=== PATIENT | female | born 1960 | race Caucasian/White ===

== ENCOUNTER 2016-06-23 09:52 | Day surgery (SDC) | payer BC ==
[2016-06-16 07:41] LABS: HEMATOCRIT 39.6 % (36.0-48.0); HEMOGLOBIN 13.8 g/dL (12.0-16.0)
--- NOTE | ~2016-06-23 | OP ---
Record Of Operation [facility] [address] [place]. [address] NAME: VICKY CROSS : 58 STATUS : REG [facility] [place] PAT#: [id number] AGE: 55 ADM/REG DATE : 06/23/16 MR#: [id number] REPORT SERV DATE: 06/23/16 DICTATED BY: MARIA ELENA BAUTISTA DATE: 06/23/16 REPORT STATUS : Draft TRANSCRIBED BY: MODL DATE: 06/23/16 DATE OF PROCEDURE: 06/23/2016 PREOPERATIVE DIAGNOSES: 1. 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 2. 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 POSTOPERATIVE DIAGNOSES: 1. 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 2. 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 PROCEDURES: 1. Right 5th PIPJ arthroplasty with de-rotational skin plasty. 2. Right 5th DIPJ arthroplasty with K-wire stabilization. SURGEON: Carlotta RainPXavier ANESTHESIA: General local anesthetic. ESTIMATED BLOOD LOSS: Minimal. COMPLICATIONS: None. INJECTABLES: Approximately 10 mL of a 1:1 mixture of 1% Xylocaine plain and 0.5% Marcaine plain. MATERIALS: Include 0.045 K-wire, 4-0 Vicryl, 5-0 nylon. PROCEDURE IN DETAIL: Under mild sedation, the patient was brought to the operating room and placed on the operating table in supine position. Following general anesthesia, local anesthesia obtained about the patient's right foot. Right foot, ankle, and lower leg were scrubbed, prepped, and draped in usual aseptic manner. Attention was directed to the procedure. Procedure #1 is right 5th PIPJ arthroplasty with de-rotational skin plasty and K-wire stabilization. Attention was directed to the dorsal aspect of the patient's right 5th PIPJ where an oblique semi-elliptical incision was made overlying the dorsal aspect of the PIPJ. This oblique incision continued to subcutaneous tissue. An ellipse of skin was removed in toto with care being taken to identify and retract all vital neurovascular structures. At this time, a transverse tenotomy and capsulotomy ensued to the right 5th PIPJ. The head of the proximal phalanx was exposed and utilizing a sagittal bone saw, the head of the proximal phalanx was resected. All rough edges smoothed as necessary. At this time, attention was directed to the next procedure. Next procedure is right 5th DIPJ arthroplasty with K-wire stabilization. Attention now was directed to the dorsal aspect of this right 5th DIPJ where two 1 cm transverse incisions Record Of Operation [facility] [address] [place]. [address] NAME: VICKY CROSS : 58 STATUS : REG [facility] [place] PAT#: [id number] AGE: 55 ADM/REG DATE : 06/23/16 MR#: [id number] REPORT SERV DATE: 06/23/16 DICTATED BY: MARIA ELENA BAUTISTA DATE: 06/23/16 REPORT STATUS : Draft TRANSCRIBED BY: MODL DATE: 06/23/16 were made in a semi-elliptical fashion encompassing the dorsal aspect of the right 5th DIPJ. Ellipse of skin was removed in toto. Transverse tenotomy and capsulotomy ensued, and partial resection of the head in the intermediate phalanx was performed. At this time, a K- wire was then placed through the intermediate phalanx exiting through the distal phalanx percutaneously and was retrograded into the proximal phalanx in a de-rotated position. At this time, the extensor tendons reapproximated and coapted utilizing 4-0 Vicryl, skin was reapproximated and coapted utilizing 5-0 nylon in an interrupted horizontal suture technique. A well-padded sterile dressing was placed about the patient's right foot and ankle. Prior to covering the 5th toe, the tourniquet was released and capillary refill time was immediate to all digits. A K-cap was placed over the tip of the K-wire. Again, capillary refill time less was than 3 seconds, all digits tested. The toe was then completely covered in a well-padded sterile dressing and well-padded CAM walker was placed about the patient's right foot and ankle. The patient tolerated the procedure and anesthesia well and was transferred to recovery room with vital signs stable and vascular status intact to all toes. Following a period of postoperative monitoring, the patient will be discharged home with following written and oral postoperative instructions. 1. Keep dressings clean, dry, and intact. 2. Partial weightbearing with crutches and CAM walker, ice and elevate as directed, and will follow up with Dr. Bautista in 7 to 14 days. SUNDARW/MODL Kevin Bautista D.P.M. / [id number] CC: Kalpesh Rain Joel S
[~2016-06-23 09:52] MED LIST: CALTRAT600 PO; ESTRACE0.5 MG PO; PRILOSEC40 MG PO; PRIN10 PO; T PO; V5 PO; VIVELLE SY0.05 MG/24 TOP; X5 PO; ZOL50 PO
== END 2016-06-23 23:59 | disposition home or self-care (01) ==
LOC: MSC 09:52
PROVIDERS: Podiatrist Foot & Ankle Surgery
PROC: 0SRP0JZ Replacement of Right Toe Phalangeal Joint with Synthetic Substitute, Open Approach (ICD-10-PCS; principal; 2016-06-23 11:45)
DX: M20.41 Other hammer toe(s) (acquired), right foot (principal); S92.5 Fracture of lesser toe(s); G47.33 Obstructive sleep apnea (adult) (pediatric); F41.9 Anxiety disorder, unspecified; I10 Essential (primary) hypertension; Z88.1 Allergy status to other antibiotic agents; Z79.899 Other long term (current) drug therapy; Z98.890 Other specified postprocedural states; Z90.710 Acquired absence of both cervix and uterus; Z98.51 Tubal ligation status; Z90.49 Acquired absence of other specified parts of digestive tract
CPT/HCPCS: 85014; 85018; 93005; A9270-GY; J0690; J2175; J2250; J2405; J2550; J3010